=== PATIENT | male | born 2000 | race Caucasian/White ===

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

== ENCOUNTER 2018-06-13 09:01 | Emergency (ER) | payer MEDICAID ==
[~2018-06-13] VITALS: Ht 177.8 cm; Wt 61.8 kg
[2018-06-13 10:06] LABS: BASOPHILS % (AUTO) 0.3 % (0-1); EOSINOPHILS % (AUTO) 0.3 % (0-6); HEMATOCRIT 40.5 % (42.0-52.0); HEMOGLOBIN 13.6 g/dl (14.0-17.9); LYMPHOCYTES # (AUTO) 1.5 X10'3 (1.1-4.8); LYMPHOCYTES % (AUTO) 11.1 % (21-51); MEAN CORPUSCULAR HEMOGLOBIN 31.2 PG (27.0-31.0); MEAN CORPUSCULAR HGB CONC 33.6 g/dL (33.0-36.5); MEAN CORPUSCULAR VOLUME 92.8 FL (78-98); MEAN PLATELET VOLUME 8.1 FL (7.4-10.4); MONOCYTES # (AUTO) 1.2 X10'3 (0-0.9); MONOCYTES % (AUTO) 8.4 % (2-12); NEUTROPHILS % (AUTO) 79.9 % (42-75); PLATELET COUNT 279 X10'3 (140-440); RED BLOOD COUNT 4.37 X10'6 (4.70-6.10); RED CELL DISTRIBUTION WIDTH 13.6 % (11.5-14.5); WHITE BLOOD COUNT 13.7 X10'3 (4.5-11.0)
[2018-06-13 10:17] LABS: ALANINE AMINOTRANSFERASE 17 U/L (12-78); ALBUMIN 4.2 G/DL (3.4-5.0); ALBUMIN/GLOBULIN RATIO 1.3 (1.1-1.5); ALKALINE PHOSPHATASE 86 IU/L (20-180); AMYLASE 68 U/L (25-115); ANION GAP 12 (8-16); ASPARTATE AMINO TRANSFERASE 15 U/L (10-37); BILIRUBIN,TOTAL 0.5 MG/DL (0.1-1.0); BLOOD UREA NITROGEN 11 MG/DL (7-18); BUN/CREATININE RATIO 11.8 (5.4-32.0); CALCIUM 9.8 MG/DL (8.5-10.1); CHLORIDE 104 MMOL/L (99-107); CREATININE 0.93 MG/DL (0.60-1.10); GLUCOSE 148 MG/DL (70-104); LIPASE 76 U/L (73-393); POTASSIUM 3.7 MMOL/L (3.5-5.1); SODIUM 139 MMOL/L (135-145); TOTAL PROTEIN 7.5 G/DL (6.4-8.2); eGFR > 90 ML/MIN
[2018-06-13 10:19] LABS: INR 1.1 INR
[2018-06-13] MEDS ORDERED: ketorolac tromethamine 15mg/ml inj. IV ONE (11:15)
[2018-06-13] MEDS ORDERED: normal saline 1000ML IV soln IVB ONE (11:15)
[2018-06-13] MEDS ORDERED: proCHLORperazine 10 MG/2 ml inj IV ONE (11:15)
[2018-06-13] MEDS ORDERED: NO HOME MEDS (11:57)
[2018-06-13] MEDS ORDERED: pantoprazole 40 MG vial IV ONE (12:35)
[2018-06-13] MEDS ORDERED: normal saline 1000ml 1,000 ML IV ONE (12:35)
[2018-06-13] MEDS ORDERED: ONDA4TAB6 PO (13:20)
[2018-06-13] MEDS ORDERED: NORT25CA PO (13:20)
[2018-06-13 13:48] LABS: CLARITY,URINE CLEAR (Clear); GLUCOSE, URINE NEGATIVE (Neg); KETONES,URINE >=80 mg/dl (Neg); LEUKOCYTE ESTERASE ,URINE NEGATIVE (Neg); NITRITES, URINE NEGATIVE (Neg); OCCULT BLOOD,URINE NEGATIVE (Neg); PH,URINE 8.5 (4.8-8.0); PROTEIN,URINE 100 mg/dl (Neg)
[2018-06-13 13:49] LABS: COLOR,URINE DARK YELLOW (Yellow); UA COLLECTION TYPE CLN CATCH MIDSTREAM
[2018-06-13 13:54] LABS: BACTERIA,URINE FEW /HPF (Neg); HYALINE CASTS 0-3 /LPF (NEGATIVE); MUCUS STRANDS MODERATE /LPF (Neg); RBC,URINE 0-2 /HPF (0-2); SQUAMOUS EPITHELIAL CELL,UR FEW /LPF (FEW); WBC,URINE 0-4 /HPF (0-4)
[2018-06-13 13:55] LABS: COARSE GRANULAR CAST 0-3 /LPF (NEGATIVE)
[2018-06-13 14:20] VITALS: BP 99/61
== END 2018-06-13 14:22 | disposition home or self-care (01) ==
LOC: ER 09:02
DX: R10.12 Left upper quadrant pain (principal); R11.2 Nausea with vomiting, unspecified; F12.90 Cannabis use, unspecified, uncomplicated; Z79.899 Other long term (current) drug therapy
CPT/HCPCS: 36415; 80053; 81001; 82150; 83690; 85025; 85610; 96361; 96374; 96375; 99283; C9113; J0780; J1885; J7030

== ENCOUNTER 2018-09-25 10:14 | Emergency (ER) | payer MEDICAID ==
[~2018-09-25] VITALS: Ht 175.3 cm; Wt 63.6 kg
[~2018-09-25 10:14] MED LIST changes: +NO HOME MEDS; +NORT25CA PO; -ONDA4TAB12 PO; +ONDA4TAB6 PO
[2018-09-25 10:40] LABS: BASOPHILS % (AUTO) 0.5 % (0-1); EOSINOPHILS # (AUTO) 0.1 X10'3 (0-0.9); EOSINOPHILS % (AUTO) 1.6 % (0-6); HEMATOCRIT 43.7 % (42.0-52.0); HEMOGLOBIN 14.7 g/dl (14.0-17.9); LYMPHOCYTES # (AUTO) 2.5 X10'3 (1.1-4.8); LYMPHOCYTES % (AUTO) 32.9 % (21-51); MEAN CORPUSCULAR HEMOGLOBIN 32.1 PG (27.0-31.0); MEAN CORPUSCULAR HGB CONC 33.6 g/dL (33.0-36.5); MEAN CORPUSCULAR VOLUME 95.6 FL (78-98); MEAN PLATELET VOLUME 7.5 FL (7.4-10.4); MONOCYTES # (AUTO) 0.6 X10'3 (0-0.9); MONOCYTES % (AUTO) 8.3 % (2-12); NEUTROPHILS # (AUTO) 4.4 X10'3 (1.8-7.7); NEUTROPHILS % (AUTO) 56.7 % (42-75); PLATELET COUNT 251 X10'3 (140-440); RED BLOOD COUNT 4.57 X10'6 (4.70-6.10); RED CELL DISTRIBUTION WIDTH 13.9 % (11.5-14.5); WHITE BLOOD COUNT 7.7 X10'3 (4.5-11.0)
[2018-09-25 10:53] LABS: ALANINE AMINOTRANSFERASE 16 U/L (12-78); ALBUMIN 4.4 G/DL (3.4-5.0); ALBUMIN/GLOBULIN RATIO 1.1 (1.1-1.5); ALKALINE PHOSPHATASE 82 IU/L (20-180); ANION GAP 12 (8-16); ASPARTATE AMINO TRANSFERASE 14 U/L (10-37); BILIRUBIN,TOTAL 0.8 MG/DL (0.1-1.0); BLOOD UREA NITROGEN 13 MG/DL (7-18); BUN/CREATININE RATIO 10.7 (5.4-32.0); CALCIUM 9.6 MG/DL (8.5-10.1); CHLORIDE 105 MMOL/L (99-107); CREATININE 1.22 MG/DL (0.60-1.10); GLUCOSE 124 MG/DL (70-104); LIPASE 62 U/L (73-393); POTASSIUM 4.4 MMOL/L (3.5-5.1); SODIUM 142 MMOL/L (135-145); TOTAL CARBON DIOXIDE 24.8 MMOL/L (24-32); TOTAL PROTEIN 8.3 G/DL (6.4-8.2); eGFR 76 ML/MIN
[2018-09-25 11:24] LABS: CLARITY,URINE TURBID (Clear); COLOR,URINE YELLOW (Yellow); GLUCOSE, URINE NEGATIVE (Neg); KETONES,URINE 15 mg/dl (Neg); LEUKOCYTE ESTERASE ,URINE NEGATIVE (Neg); NITRITES, URINE NEGATIVE (Neg); OCCULT BLOOD,URINE NEGATIVE (Neg); PH,URINE >=9.0 (4.8-8.0); PROTEIN,URINE 30 mg/dl (Neg)
[2018-09-25 11:25] LABS: UA COLLECTION TYPE CLN CATCH MIDSTREAM
[2018-09-25 11:37] LABS: AMORPHOUS PHOSPHATES 4+
[2018-09-25 11:39] LABS: MUCUS STRANDS MODERATE /LPF (Neg); RBC,URINE 0-2 /HPF (0-2); SQUAMOUS EPITHELIAL CELL,UR MODERATE /LPF (FEW); TRANSITIONAL EPI CELLS,URINE FEW /HPF; WBC,URINE 0-4 /HPF (0-4)
[2018-09-25 11:41] LABS: BACTERIA,URINE 1+ /HPF (Neg)
--- NOTE | 2018-09-25 11:50 | NUR ---
PT IS SLEEPING, NO S/S OF DISTRESS OR DISCOMFORT, DR SANDERS TO EVALUATE PT SHORTLY
[2018-09-25 12:26] VITALS: BP 104/57
== END 2018-09-25 12:20 | disposition home or self-care (01) ==
LOC: ER 10:14
DX: R10.30 Lower abdominal pain, unspecified (principal); R11.10 Vomiting, unspecified; F12.90 Cannabis use, unspecified, uncomplicated
CPT/HCPCS: 36415; 80053; 81001; 83690; 85025; 85610; 99283

== ENCOUNTER 2024-03-22 22:57 | Emergency (ER) | payer MEDICAID ==
[~2024-03-22] VITALS: Ht 175.3 cm; Wt 68.2 kg
[2024-03-22 23:02] VITALS: TEMP 98.7
[2024-03-22 23:33] LABS: BASOPHILS % (AUTO) 0.4 % (0-1); EOSINOPHILS % (AUTO) 0.5 % (0-6); HEMATOCRIT 40.5 % (42.0-52.0); HEMOGLOBIN 14.1 g/dl (14.0-17.9); LYMPHOCYTES # (AUTO) 0.8 X10'3 (1.1-4.8); LYMPHOCYTES % (AUTO) 9.7 % (21-51); MEAN CORPUSCULAR HEMOGLOBIN 33.2 PG (27.0-31.0); MEAN CORPUSCULAR HGB CONC 34.7 g/dL (33.0-36.5); MEAN CORPUSCULAR VOLUME 95.6 FL (78-98); MEAN PLATELET VOLUME 7.9 FL (7.4-10.4); MONOCYTES # (AUTO) 1.6 X10'3 (0-0.9); MONOCYTES % (AUTO) 20.1 % (2-12); NEUTROPHILS # (AUTO) 5.4 X10'3 (1.8-7.7); NEUTROPHILS % (AUTO) 69.3 % (42-75); PLATELET COUNT 214 X10'3 (140-440); RED BLOOD COUNT 4.23 X10'6 (4.70-6.10); RED CELL DISTRIBUTION WIDTH 13.3 % (11.5-14.5); WHITE BLOOD COUNT 7.8 X10'3 (4.5-11.0)
[2024-03-22 23:48] LABS: D-DIMER 0.23 MG/L FEU (0-0.50)
[2024-03-22 23:54] LABS: ALBUMIN 4.3 G/DL (3.4-5.0); ANION GAP 14 (8-16); BLOOD UREA NITROGEN 9 MG/DL (7-18); BUN/CREATININE RATIO 8.4 (10.0-20.0); CALCIUM 9.5 MG/DL (8.5-10.1); CHLORIDE 102 MMOL/L (99-107); CREATININE 1.07 MG/DL (0.60-1.10); GLUCOSE 94 MG/DL (70-104); MAGNESIUM 1.4 MG/DL (1.5-2.4); POTASSIUM 3.5 MMOL/L (3.5-5.1); SODIUM 139 MMOL/L (135-145); TOTAL CARBON DIOXIDE 23.1 MMOL/L (24-32); eCRCL 102 ML/MIN; eGFR 84 ML/MIN
[2024-03-22 23:56] LABS: TOTAL CELLS COUNTED 100
[2024-03-23] MEDS: famotidine 20mg tablet PO ONE (00:23)
[2024-03-23] MEDS: ondansetron 4mg rapidly disintigrating tab PO ONE (00:23)
[2024-03-23] MEDS: LIDOcaine 2% Viscous 15ml cup MM ONE (00:35)
[2024-03-23] MEDS: mag hydrox/Alum hydrox/simeth 30ml oral suspension PO ONE (00:36)
[2024-03-23 00:37] VITALS: BP 112/71; PULSE 107; O2SAT 99
[2024-03-23] MEDS ORDERED: FAMO-129 PO (01:05)
[2024-03-23] MEDS ORDERED: MAG355OR18 PO (01:05)
[2024-03-23] MEDS ORDERED: ONDA-245 PO (01:08)
[2024-03-23 01:16] VITALS: RESP 16
[2024-03-23] MEDS: HYDROcodone/acetaminophen 5mg/325mg tablet PO ONE (01:16)
[2024-03-23] MEDS: pantoprazole 40mg Tablet.DR PO ONE (01:16)
== END 2024-03-23 01:22 | disposition home or self-care (01) ==
LOC: ER 22:57
DX: K29.00 Acute gastritis without bleeding (principal); R07.9 Chest pain, unspecified; K21.9 Gastro-esophageal reflux disease without esophagitis; F12.90 Cannabis use, unspecified, uncomplicated
CPT/HCPCS: 71045; 80048; 83735; 84484; 85007; 85025; 85379; 93005; 99285